=== PATIENT | female | born 1980 | race Caucasian/White ===

== ENCOUNTER 2017-04-29 14:44 | Emergency (ER) | payer MEDICAID, OTHER ==
[~2017-04-29] VITALS: Ht 160 cm; Wt 72.6 kg
[~2017-04-29 14:44] MED LIST: LEVO112T2 PO
[2017-04-29 14:45] VITALS: BP 115/78
== END 2017-04-29 15:38 | disposition home or self-care (01) ==
LOC: ER 14:46
DX: B34.9 Viral infection, unspecified (principal); E03.9 Hypothyroidism, unspecified; Z98.51 Tubal ligation status
CPT/HCPCS: A4606; Z7610

== ENCOUNTER 2024-02-11 14:56 | Emergency (ER) | payer BC, MEDICAID ==
[~2024-02-11] VITALS: Ht 160 cm; Wt 99.8 kg
[2024-02-11 15:01] VITALS: BP 132/106; TEMP 98.2; O2SAT 99
[2024-02-11] MEDS ORDERED: GUAI-671 PO (15:18)
[2024-02-11] MEDS ORDERED: LORA10TA7 PO (15:18)
[2024-02-11] MEDS ORDERED: FLUT16SP16 BNOSTRILS (15:18)
== END 2024-02-11 15:39 | disposition home or self-care (01) ==
LOC: ER 14:58
DX: J32.9 Chronic sinusitis, unspecified (principal); E03.9 Hypothyroidism, unspecified

== ENCOUNTER 2024-07-23 15:32 | Emergency (ER) | payer BC ==
[~2024-07-23] VITALS: Ht 160 cm; Wt 90.7 kg
[~2024-07-23 15:32] MED LIST changes: +FLUT16SP16 BNOSTRILS; +GUAI-671 PO; +LORA10TA7 PO
[2024-07-23 15:57] VITALS: BP 143/96; TEMP 97.9; O2SAT 100
[2024-07-23] MEDS ORDERED: ACET-73 PO (17:52)
[2024-07-23] MEDS ORDERED: IBUP-1490 PO (17:52)
[2024-07-23] MEDS ORDERED: CYCL5TAB PO (17:52)
[2024-07-23] MEDS ORDERED: ACETAMINOPHEN ES 500 MG TABLET ONE (17:56)
[2024-07-23] MEDS ORDERED: IBUPROFEN 600 MG TABLET ONE (17:56)
[2024-07-23] MEDS ORDERED: CYCLOBENZAPRINE 10 MG TABLET ONE (17:56)
[2024-07-23] MEDS: IBUPROFEN 600 MG TABLET PO ONE (17:59)
[2024-07-23] MEDS: ACETAMINOPHEN ES 500 MG TABLET PO ONE (17:59)
[2024-07-23] MEDS: CYCLOBENZAPRINE 10 MG TABLET PO ONE (17:59)
== END 2024-07-23 18:02 | disposition home or self-care (01) ==
LOC: ER 15:35
DX: S39.012A Strain of muscle, fascia and tendon of lower back, initial encounter (principal); E03.9 Hypothyroidism, unspecified; X50.0XXA Overexertion from strenuous movement or load, initial encounter; Y93.89 Activity, other specified; Y92.89 Other specified places as the place of occurrence of the external cause; Y99.8 Other external cause status